=== PATIENT | male | born 1990 | race Caucasian/White ===

== ENCOUNTER 2020-02-28 23:08 | Emergency (ER) | payer SELFPAY ==
[2020-02-28 23:29] VITALS: BP 145/98; PULSE 77; RESP 14; TEMP 36.8; O2SAT 98; BMI 28.2
--- NOTE | 2020-02-28 23:49 | ED_ITS ---
HPI - Neck Pain/Injury General: Chief Complaint: Neck Pain/Injury Stated Complaint: neck pain due to dental issues Time Seen by Provider: 02/28/20 23:36 Source: patient Mode of arrival: ambulatory Limitations: no limitations History of Present Illness: HPI Narrative: Patient is a 29-year-old male who presents to ED today with a complaint of right-sided neck pain. Patient tells me earlier this morning he felt like he slept on his neck wrong. He states after he awoke he popped his neck. He states later on during the day he began noticing right-sided neck pain. He is not having any radicular symptoms. He has not had any direct injury or trauma. Denies fevers. Denies stiff neck. Denies headache. MD complaint: neck pain Onset (ago): hour(s) Place: home Radiation: right lateral Exacerbating factors: movement of neck Associated symptoms: Denies difficulty walking, dizziness or nausea Review of Systems Const: Denies: fever(s), chills, body aches, fatigue or malaise ENMT: Reports: other (dental pain; being treated with abx for this) Card: Denies: chest pain Resp: Denies: dyspnea GI: Denies: nausea or vomiting Musc: Reports: neck pain; Denies: back pain, extremity pain, extremity swelling, joint pain, joint swelling or limited range of motion Neuro: Denies: numbness in extremities, weakness in extremities, sensory changes, difficulty walking, dizziness, vertigo or confusion [facility] ED PFSH: Social History Smoking and tobacco status: current every day smoker Physical Exam Const: COMMON NORMALS: no acute distress, average body habitus, patient oriented x3, no limitations, healthy appearing, alert and well nourished ORIENTATION/CONSCIOUSNESS: Yes oriented to person, Yes oriented to place and Yes oriented to time HENMT: COMMON NORMALS: normocephalic and atraumatic HEAD & SCALP: normocephalic and atraumatic TEETH & GINGIVA IMAGES: 1. fully decayed/broken tooth; swelling overlying maxillary region Neck/C-Spine: COMMON NORMALS: full ROM, no lymphadenopathy and no meningeal signs GENERAL: Yes normal visual inspection CERVICAL SPINE: Yes cervical ROM normal and No Cervical spine tenderness OTHER: TTP R paraspinal/trapezius musculature; no midline tenderness; full ROM Neuro: [place] COMA SCALE: document GCS findings [place] coma scale eye opening: Spontaneous [place] coma scale verbal response: Orientated [place] coma scale motor response: Obey commands [place] coma scale total score: 15 COMMON NORMALS: patient oriented x3, CN's II-XII intact bilaterally, moves all extremities, no focal motor deficits, no sensory deficits noted and gait normal SENSORIUM/ORIENTATION: Yes alert, Yes oriented to person, Yes oriented to place and Yes oriented to time MENINGEAL SIGNS: Yes no meningeal signs Course Vital Signs: Vital signs: Vital Signs Temperature 98.2 F 02/28/20 23:29 Pulse Rate 77 02/28/20 23:29 Respiratory Rate 14 02/28/20 23:29 Blood Pressure 145/98 02/28/20 23:29 Pulse Oximetry 98 02/28/20 23:29 MDM - Neck Pain/Injury MDM Narrative: Medical decision making narrative: Pt currently being treated for dental infection with Keflex-just started this. Will treat today for his neck pain. Discharge Plan Discharge Patient Disposition: Home Clinical Impression: Strain of neck muscle Condition: Stable Prescriptions: New cyclobenzaprine 10 mg tablet 10 mg PO TID Qty: 14 RF: 0 diclofenac sodium 50 mg tablet,delayed release (DR/EC) 50 mg PO Q12H PRN (Reason: pain) Qty: 20 RF: 0 No Action cephalexin 500 mg capsule 500 mg PO Q12H 10 Days Qty: 20 RF: 0 Discharge Orders: Discharge ED (Routine); Ordered 02/28/20 Ordered By: Karen Darby Patient Instructions: Muscle Spasm (ED) Activity Restrictions/Additional Instructions: Do not take the diclofenac prescribed to you today with Ibuprofen or Aleve. You may also alternate ice and heat to the area. Return to the emergency department for severe pain, neck stiffness, fevers, severe headache. You may also return to the emergency department if your dental infection does not begin to improve over the next 48 hours despite antibiotic therapy. Coding Level of Care Code ED Slipper Maker for Lilia Brown
[2020-02-29] MEDS: orphenadrine 30 mg/mL Inj 2 mL 60 MG IM (00:16)
[2020-02-29] MEDS: ketorolac 60 mg/2 mL INJ IM (00:16)
[2020-02-29 00:24] VITALS: BP 118/78; PULSE 84; RESP 16; O2SAT 99
== END 2020-02-29 00:25 | disposition home or self-care (01) ==
PROVIDERS: Emergency Provider Physician Assistant
DX: S16.1XXA Strain of muscle, fascia and tendon at neck level, initial encounter (principal); X58.XXXA Exposure to other specified factors, initial encounter; F17.210 Nicotine dependence, cigarettes, uncomplicated
CPT/HCPCS: 12345; 96372; 99281; 99283; J1885; J2360